=== PATIENT | male | born 1950 | race Caucasian/White ===

== ENCOUNTER 2025-01-19 12:21 | Inpatient (IN) | payer MEDICARE, BC ==
[2025-01-19] MEDS ORDERED: Aspirin Chewable 81 MG TAB ONE (12:35)
[2025-01-19 12:57] LABS: #Basophils 0.04 10x3/uL (0.0-0.2); #Eosinophils 0.17 10x3/uL (0.0-0.7); #Monocytes 0.80 10x3/uL (0.11-0.59); #Neutrophils 5.15 10x3/uL (1.40-6.50); %Basophils 0.5 % (0.0-1.0); %Eosinophils 2.3 % (0.0-10.0); %Lymphocytes 16.4 % (21.0-51.0); %Monocytes 10.8 % (0.0-10.0); %Neutrophils 69.3 % (42.0-75.0); Hematocrit 45.9 % (42.0-52.0); Hemoglobin 14.8 g/dL (14.0-18.0); Mean Corpuscular Hemoglobin 28.6 pg (27.0-31.0); Mean Corpuscular Volume 88.6 fL (78.0-98.0); Platelet Count 223 10x3/uL (130-400); Red Blood Cell (RBC) Count 5.18 mill/uL (4.70-6.10); White Blood Cell (WBC) Count 7.43 10x3/uL (4.8-10.8)
[2025-01-19 13:15] LABS: INR-International Normal Ratio 1.0; Prothrombin Time 13.7 sec (12.0-14.7)
[2025-01-19 13:16] LABS: PTT 31.7 sec (22.9-36.1)
[2025-01-19 13:24] LABS: ALT (SGPT) 21 U/L (Less than 45); AST (SGOT) 29 U/L (11-34); Albumin 4.5 g/dL (3.1-4.5); Alkaline Phosphatase 94 U/L (40-110); Anion Gap 14 mmol/L (10-20); BUN (Urea Nitrogen) 23 mg/dL (8.4-25.7); Bilirubin, Total 0.5 mg/dL (0.3-1.2); Calc. Creatinine Clearance 0 mL/min (70-130); Calcium 9.4 mg/dL (7.8-10.44); Carbon Dioxide 22 mmol/L (23-31); Chloride 108 mmol/L (98-107); Globulin 2.8 g/dL (2.4-3.5); Glucose 165 mg/dL (83-110); Potassium 4.7 mmol/L (3.5-5.1); Sodium 139 mmol/L (136-145)
[2025-01-19] MEDS ORDERED: Acetaminophen 325 MG TAB PO PRN (15:38)
[2025-01-19] MEDS ORDERED: Senokot S 8.6-50 MG TAB PO PRN (15:38)
[2025-01-19 17:35] VITALS: BMI 29.1
[2025-01-19] MEDS: Famotidine 20 MG TAB PO SCH (20:31)
[2025-01-19] MEDS: Losartan 25 MG TAB PO SCH (20:31)
[2025-01-19] MEDS: Melatonin 3 MG TAB PO PRN (22:37)
[2025-01-20 05:21] LABS: Anion Gap 13 mmol/L (10-20); BUN (Urea Nitrogen) 20 mg/dL (8.4-25.7); Calc. Creatinine Clearance 80 mL/min (70-130); Calcium 9.0 mg/dL (7.8-10.44); Carbon Dioxide 22 mmol/L (23-31); Chloride 108 mmol/L (98-107); Glucose 161 mg/dL (83-110); Potassium 3.7 mmol/L (3.5-5.1); Sodium 139 mmol/L (136-145)
[2025-01-20] MEDS ORDERED: Rosuvastatin 20 MG TAB PO SCH (09:00)
[2025-01-20] MEDS: Aspirin Chewable 81 MG TAB PO SCH (10:26)
[2025-01-20] MEDS: Ezetimibe 10 MG TAB PO SCH (10:26)
[2025-01-20] MEDS: Enoxaparin 40 MG (0.4 mL) SYRINGE SC SCH (10:27)
[2025-01-20] MEDS ORDERED: Nitroglycerin 0.4 MG TAB (25 Tab Bottle) SL PRN (15:53)
[2025-01-20] MEDS: Metoprolol Succinate XL 50 MG ER.TAB PO SCH (16:28)
[2025-01-21 05:16] LABS: #Basophils 0.04 10x3/uL (0.0-0.2); #Eosinophils 0.42 10x3/uL (0.0-0.7); #Monocytes 0.76 10x3/uL (0.11-0.59); #Neutrophils 4.50 10x3/uL (1.40-6.50); %Basophils 0.6 % (0.0-1.0); %Eosinophils 5.9 % (0.0-10.0); %Lymphocytes 19.0 % (21.0-51.0); %Monocytes 10.7 % (0.0-10.0); %Neutrophils 63.2 % (42.0-75.0); Hematocrit 44.4 % (42.0-52.0); Hemoglobin 14.5 g/dL (14.0-18.0); Mean Corpuscular Hemoglobin 29.0 pg (27.0-31.0); Mean Corpuscular Volume 88.8 fL (78.0-98.0); Platelet Count 192 10x3/uL (130-400); Red Blood Cell (RBC) Count 5.00 mill/uL (4.70-6.10); White Blood Cell (WBC) Count 7.11 10x3/uL (4.8-10.8)
[2025-01-21 05:26] LABS: Anion Gap 15 mmol/L (10-20); BUN (Urea Nitrogen) 20 mg/dL (8.4-25.7); Calc. Creatinine Clearance 78 mL/min (70-130); Calcium 9.3 mg/dL (7.8-10.44); Carbon Dioxide 23 mmol/L (23-31); Chloride 106 mmol/L (98-107); Glucose 150 mg/dL (83-110); Potassium 3.9 mmol/L (3.5-5.1); Sodium 140 mmol/L (136-145)
[2025-01-21] MEDS: Isosorbide Mononitrate 30 MG ER.TAB.S PO SCH (08:40)
[2025-01-21] MEDS: Dapagliflozin Propanediol 10 MG TAB PO SCH (08:40)
[2025-01-21] MEDS: Metoprolol Succinate XL 50 MG ER.TAB PO SCH (08:40)
[2025-01-21 11:59] VITALS: BP 100/61; TEMP 98
== END 2025-01-21 14:54 | disposition home or self-care (01) | DRG 280 ==
LOC: ERS 12:21 → ERHOLD 15:15 → OBS 16:44 → OBSVTOIN 01-21 12:25
PROVIDERS: ADMIT Internal Medicine; ATTEND Hospitalist
DX: I11.0 Hypertensive heart disease with heart failure (principal); I50.23 Acute on chronic systolic (congestive) heart failure; I21.4 Non-ST elevation (NSTEMI) myocardial infarction; I25.10 Atherosclerotic heart disease of native coronary artery without angina pectoris; E78.5 Hyperlipidemia, unspecified; N40.0 Benign prostatic hyperplasia without lower urinary tract symptoms; Z60.2 Problems related to living alone; Z95.5 Presence of coronary angioplasty implant and graft; Z95.1 Presence of aortocoronary bypass graft; Z88.8 Allergy status to other drugs, medicaments and biological substances; Z98.890 Other specified postprocedural states; Z79.82 Long term (current) use of aspirin; Z79.899 Other long term (current) drug therapy
CPT/HCPCS: 36415; 71045; 78452; 80048; 80053; 83880; 84484; 85025; 85610; 85730; 86850; 86900; 86901; 93005; 93017; 93306; 94640; 94760; 96372; A9502; G0378; J1650; J2785; J7620

== ENCOUNTER 2025-03-27 18:18 | Emergency (ER) | payer BC, MEDICARE ==
[~2025-03-27 18:18] MED LIST: Iopamidol 370 76% 100 ML VIAL ONE
[2025-03-27 19:18] LABS: #Basophils 0.05 10x3/uL (0.0-0.2); #Eosinophils 0.16 10x3/uL (0.0-0.7); #Monocytes 0.84 10x3/uL (0.11-0.59); #Neutrophils 7.53 10x3/uL (1.40-6.50); %Basophils 0.5 % (0.0-1.0); %Eosinophils 1.6 % (0.0-10.0); %Lymphocytes 12.4 % (21.0-51.0); %Monocytes 8.5 % (0.0-10.0); %Neutrophils 76.2 % (42.0-75.0); Hematocrit 45.3 % (42.0-52.0); Hemoglobin 14.5 g/dL (14.0-18.0); Mean Corpuscular Hemoglobin 28.5 pg (27.0-31.0); Mean Corpuscular Volume 89.2 fL (78.0-98.0); Platelet Count 225 10x3/uL (130-400); Red Blood Cell (RBC) Count 5.08 mill/uL (4.70-6.10); White Blood Cell (WBC) Count 9.89 10x3/uL (4.8-10.8)
[2025-03-27 19:36] LABS: ALT (SGPT) 25 U/L (Less than 45); AST (SGOT) 30 U/L (11-34); Albumin 4.3 g/dL (3.1-4.5); Alkaline Phosphatase 105 U/L (40-110); Anion Gap 13 mmol/L (10-20); BUN (Urea Nitrogen) 18 mg/dL (8.4-25.7); Bilirubin, Total 0.3 mg/dL (0.3-1.2); Calc. Creatinine Clearance 0 mL/min (70-130); Calcium 9.4 mg/dL (7.8-10.44); Carbon Dioxide 23 mmol/L (23-31); Chloride 109 mmol/L (98-107); Globulin 3.1 g/dL (2.4-3.5); Glucose 158 mg/dL (83-110); Lipase 16 U/L (8-78); Potassium 4.6 mmol/L (3.5-5.1); Sodium 140 mmol/L (136-145)
[2025-03-27 22:13] LABS: Bacteria/HPF 1+ HPF (None Seen); CAUTI Indications for Culture Fever or rigors; Glucose, Urine (Dipstick) Greater than 1000 mg/dL (Negative); Leukocyte 500 Leu/uL (Negative); Protein, Urine (Dipstick) 30 mg/dL (Neg-Trace); Specific Gravity, Urine 1.027 (1.002-1.036); WBC/HPF Greater than 50 HPF (0-3)
[2025-03-27 22:14] LABS: Urine Culture Reflex Yes Yes
== END 2025-03-27 22:52 | disposition home or self-care (01) ==
LOC: ERS 18:18
DX: N39.0 Urinary tract infection, site not specified (principal); M54.50 Low back pain, unspecified; I10 Essential (primary) hypertension; E78.5 Hyperlipidemia, unspecified; Z95.5 Presence of coronary angioplasty implant and graft; Z79.82 Long term (current) use of aspirin
CPT/HCPCS: 36415; 74177; 80053; 81001; 83690; 85025; 87077; 87086; 93005; 96374; 96375; J2272; J3010; Q9967